=== PATIENT | female | born 1990 | race Asian ===

== ENCOUNTER 2018-06-05 18:41 | Emergency (ER) | payer SELFPAY ==
[2018-06-05] MEDS ORDERED: Morphine 4 MG/ML VIAL ONE (18:46)
[2018-06-05 18:57] LABS: #Basophils 0.1 thou/uL (0.0-0.2); #Eosinphils 0.2 thou/uL (0.0-0.7); #Lymphocytes 2.5 thou/uL (1.20-3.40); #Monocytes 1.3 thou/uL (0.11-0.59); %Basophils 0.5 % (0.0-1.0); %Eosinophils 1.2 % (0.0-10.0); %Lymphocytes 14.6 % (21.0-51.0); %Monocytes 7.7 % (0.0-10.0); Mean Corpuscular HGB CONC 33.3 g/dL (32.0-36.0); Mean Corpuscular Hemoglobin 33.6 pg (27.0-31.0); Mean Platelet Volume 8.6 fL (7.4-10.4); Platelet Count 262 thou/uL (130-400); RBC Distribution Width 10.7 % (11.5-14.5); Red Blood Cell (RBC) Count 4.15 mill/uL (4.20-5.40); White Blood Cell (WBC) Count 17.1 thou/uL (4.8-10.8)
[2018-06-05] MEDS ORDERED: Lidocaine 1% (PF) 30 ML VIAL ONE (18:58)
[2018-06-05 19:12] LABS: ALT (SGPT) 11 U/L (8-55); AST (SGOT) 18 U/L (5-34); Albumin 4.5 g/dL (3.5-5.0); Alkaline Phosphatase 49 U/L (40-150); Anion Gap 17 mmol/L (10-20); BUN (Urea Nitrogen) 14 mg/dL (7.0-18.7); Bilirubin, Total 0.2 mg/dL (0.2-1.2); Calc. Creatinine Clearance 0 mL/min (70-130); Calcium 9.4 mg/dL (7.8-10.44); Carbon Dioxide 21 mmol/L (22-29); Chloride 102 mmol/L (98-107); Estimated GFR-MDRD Greater than 90; Globulin 3.6 g/dL (2.4-3.5); Glucose 126 mg/dL (70-105); Lipase 14 U/L (8-78); Protein, Total 8.1 g/dL (6.0-8.3); Sodium 137 mmol/L (136-145)
[2018-06-05] MEDS ORDERED: CEFAZOLIN 2 GM/50 ML BAG ONE (19:14)
[2018-06-05] MEDS ORDERED: Adacel (T-DAP) 0.5 ML SYRINGE ONE (19:14)
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
[2018-06-05] MEDS ORDERED: Ondansetron PF 4 MG/2 ML Vial ONE (20:15)
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
[2018-06-05] MEDS ORDERED: Bacitracin Zinc 1 Packet ONE (21:19)
== END 2018-06-05 22:50 | disposition home or self-care (01) ==
LOC: ERS 18:41
DX: S01.511A Laceration without foreign body of lip, initial encounter (principal); S01.81XA Laceration without foreign body of other part of head, initial encounter; V89.2XXA Person injured in unspecified motor-vehicle accident, traffic, initial encounter
CPT/HCPCS: 12011; 40652; 70450; 70486; 72125; 80053; 83690; 85025; 90471; 90715; 94760; 96365; 96375; G0390; J2001; J2270; J2405